=== PATIENT | male | born 1995 | race African-American/Black ===

== ENCOUNTER 2024-04-02 01:13 | Emergency (ER) | payer BC, OTHER ==
[2024-04-02 01:23] VITALS: BMI 27.8
[2024-04-02 02:31] LABS: BASO % 0.8 % (0-2.0); EOS % 2.3 % (0-4.5); HEMATOCRIT 43.5 % (35.4-49); HEMOGLOBIN 14.7 GM/dL (11.7-16.9); LYMPH % 40.8 % (8-40); MCH 26.2 pg (25.7-33.7); MCHC 33.8 g/dl (32.0-35.9); MEAN CELL VOLUME 77.6 fl (80-96); MEAN PLT VOLUME 8.3 fl (7.5-11.1); MONO % 6.2 % (3.8-10.2); NEUT % 49.9 % (42.8-82.8); PLATELET COUNT 334 10^3/uL (134-434); RBC 5.61 M/mm3 (4.00-5.60)
[2024-04-02] MEDS ORDERED: FAMOTIDINE 20 MG/50 ML IVPB 20 MG/50 ML MG IVPB ONE (02:33)
[2024-04-02 02:37] LABS: INR 1.06 (0.83-1.09)
[2024-04-02 02:40] LABS: ACTIVATED PTT 39.5 SECONDS (25.2-36.5)
[2024-04-02] MEDS: SODIUM CHLORIDE 1,000 ML IV STA (02:43)
[2024-04-02] MEDS: FAMOTIDINE 20 MG/50 ML IVPB 20 MG/50 ML MG IVPB ONE (02:43)
[2024-04-02 02:53] LABS: POTASSIUM 3.8 mmol/L (3.5-5.1)
[2024-04-02 02:54] LABS: ALBUMIN 4.2 g/dl (3.4-5.0); BLOOD UREA NITROGEN 16.9 mg/dL (7-18); CALCIUM 9.3 mg/dL (8.5-10.1)
[2024-04-02 02:59] LABS: CREATININE 1.3 mg/dL (0.55-1.3)
[2024-04-02 03:00] LABS: BILIRUBIN,TOTAL 0.4 mg/dL (0.2-1); TOT PROT 7.6 g/dl (6.4-8.2)
[2024-04-02 04:53] VITALS: BP 158/93; PULSE 60; RESP 16; TEMP 97.6
== END 2024-04-02 05:06 | disposition home or self-care (01) ==
LOC: JER 01:13
PROC: 3E033GC Introduction of Other Therapeutic Substance into Peripheral Vein, Percutaneous Approach (ICD-10-PCS; principal; 2024-04-02)
DX: R07.89 Other chest pain (principal); R10.13 Epigastric pain
CPT/HCPCS: 36415; 71045-TC-FY; 80053; 83735; 84484; 85025; 85610; 85730; 93005; 93010; 99285-25